=== PATIENT | male | born 1960 | race Caucasian/White ===

== ENCOUNTER 2019-09-19 23:52 | Emergency (ER) | payer SELFPAY ==
[~2019-09-19] VITALS: Ht 170.2 cm; Wt 71.7 kg
[2019-09-19] MEDS ORDERED: SODIUM CHLORIDE 0.9% 1000ML 1,000 ML IV STA (23:54)
[2019-09-19] MEDS ORDERED: LIDOCAINE HCL 1% LOCAL INJ 20 ML VIAL INJ STA (23:54)
[2019-09-20] MEDS ORDERED: MUPIROCIN 2% OINT 22 GM TUBE TOP ONE
[2019-09-20 00:09] LABS: BASOPHILS # (AUTO) 0.1 (0.0-0.1); BASOPHILS % 0.4 % (0.0-1.0); EOSINOPHILS # (AUTO) 0.1 (0.0-0.4); EOSINOPHILS % 0.7 % (0.0-6.0); HEMATOCRIT 40.7 % (38.2-49.6); HEMOGLOBIN 13.5 g/dL (14.0-18.0); LYMPHOCYTES # (AUTO) 3.9 (1.0-3.2); LYMPHOCYTES % 23.2 % (18.0-39.1); MEAN CORPUSCULAR HEMOGLOBIN 31.5 pg (28-32); MEAN CORPUSCULAR HGB CONC 33.2 g/dL (31-35); MEAN CORPUSCULAR VOLUME 94.9 fL (81-99); MONOCYTES # (AUTO) 1.1 (0.2-0.8); MONOCYTES % 6.2 % (4.4-11.3); NEUTROPHILS # (AUTO) 11.7 (2.1-6.9); PLATELET COUNT 269 x10e3/uL (140-360); RED BLOOD COUNT 4.29 x10e6/uL (4.3-5.7)
[2019-09-20 00:26] LABS: ALANINE AMINOTRANSFERASE 9 IU/L (0-55); ALBUMIN 3.3 g/dL (3.5-5.0); ALBUMIN/GLOBULIN RATIO 1.4 (0.8-2.0); ALKALINE PHOSPHATASE 34 IU/L (40-150); BLOOD UREA NITROGEN 5 mg/dL (7-26); CALCIUM 7.9 mg/dL (8.4-10.2); CARBON DIOXIDE 24 mmol/L (22-29); CHLORIDE 102 mmol/L (98-107); CREATININE, SERUM < 0.30 mg/dL (0.72-1.25); EST GLOMERULAR FILTRATION RATE > 60 ML/MIN (60-); GLUCOSE 108 mg/dL (74-118); POTASSIUM 3.6 mmol/L (3.5-5.1); SODIUM 126 mmol/L (136-145)
[2019-09-20 00:37] LABS: ANION GAP 3.6 mmol/L (8-16); BUN/CREATININE RATIO 17 (6-25)
--- NOTE | 2019-09-20 00:38 | Diagnostic Imaging Report ---
EXAMINATION: Head CT without contrast. HISTORY:Syncope, altered mental status. COMPARISON:None. TECHNIQUE: Multidetector axial images were obtained from the foramen magnum to the vertex without contrast. The images were reconstructed using brain and bone algorithms. Thin section brain images were reformatted into coronal and sagittal planes. Dose modulation, iterative reconstruction, and/or weight based adjustment of the mA/kV was utilized to reduce the radiation dose to as low as reasonably achievable. Intravenous contrast: None IMAGE QUALITY: Acceptable. FINDINGS: Skull/scalp: No lytic or blastic. lesions. No surgical changes. Parenchyma: No abnormal density. No acute hemorrhage, mass or acute major vascular territorial infarct. Arteries: No density suggestive of thrombosis. Dural sinuses: No abnormal density suggestive of thrombosis. Ventricles: No hydrocephalus or displacement. Extra-axial spaces: No abnormal density. Brain volume: Normal for age. Craniocervical junction: No mass, Chiari malformation, or basilar invagination. Sella: No mass. Paranasal/mastoid sinuses: Imaged portions unremarkable. IMPRESSION: No intracranial abnormality. Signed by: Dr. Sarika Navarrete M.D. on 09/20/2019 12:35 AM
[2019-09-20] MEDS ORDERED: KETOROLAC TROMETHAMINE 30 MG/ML VIAL ONE (00:47)
[2019-09-20 01:56] VITALS: BP 135/88
== END 2019-09-20 02:06 | disposition home or self-care (01) ==
LOC: ER 23:52
DX: R55 Syncope and collapse (principal); S01.81XA Laceration without foreign body of other part of head, initial encounter; S01.312A Laceration without foreign body of left ear, initial encounter; W18.30XA Fall on same level, unspecified, initial encounter; Y93.01 Activity, walking, marching and hiking; Y92.89 Other specified places as the place of occurrence of the external cause; K52.9 Noninfective gastroenteritis and colitis, unspecified; E86.9 Volume depletion, unspecified; I95.9 Hypotension, unspecified
CPT/HCPCS: 12013; 36415; 70450; 80053; 85025; 85379; 93005; 99284; J1885; J2001; J7030